=== PATIENT | male | born 1955 | race Hispanic/Latino ===

== ENCOUNTER → 2022-08-08 | Outpatient (CLI) | payer MEDICARE ==
[~2022-08-08] MED LIST: REGADENOSON 0.4 MG/5 ML PF SYG IVP ONE; REGADENOSON 0.4 MG/5 ML PF SYG IVP SCH
== END | disposition home or self-care (01) ==
LOC: SHCH 08:45
PROVIDERS: ATTEND Internal Medicine Cardiovascular Disease
DX: R07.89 Other chest pain (principal); I25.118 Atherosclerotic heart disease of native coronary artery with other forms of angina pectoris; E11.9 Type 2 diabetes mellitus without complications; E78.5 Hyperlipidemia, unspecified; Z86.79 Personal history of other diseases of the circulatory system; Z87.891 Personal history of nicotine dependence
CPT/HCPCS: 78452; 93017; J2785; A9500 ×2; 96374